=== PATIENT | female | born 1975 | race American Indian/Alaskan Native ===

== ENCOUNTER 2018-06-23 12:28 | Emergency (ER) | payer OTHER ==
[2018-06-23 12:44] VITALS: BP 150/55
[2018-06-23] MEDS ORDERED: DECADRON IM ONE (15:39)
--- NOTE | 2018-06-23 16:10 | Emergency Department Report ---
ED Extremity Problem HPI - General Chief complaint: Extremity Injury, Lower Stated complaint: (L)NUMBNESS IN FOOT/LEG Time Seen by Provider: 06/23/18 15:10 Source: patient Mode of arrival: Ambulatory Limitations: No Limitations - History of Present Illness Initial comments: 42-year-old female with a past medical history hypertension presents complaining of left leg pain and numbness 2 days. Symptoms started after a sitting with her legs crossed for prolonged amount of time. Patient complains of numbness in pain at the anterior part of the leg extending to the top of her foot. Pain is constant, 8/10 in intensity, exacerbated by prolonged sitting and standing. Patient did have some swelling to her left foot which has since resolved. She denies recent trauma, fall, back pain, urinary incontinence, buttock pain, fever, calf tenderness, recent travel, control pill use, or history of PE/DVT. Patient is presents concerned of diabetes and blood clots since members or her family had been diagnosed with both. She does not have a primary care doctor. Severity scale (0 -10): 8 - Related Data Previous Rx's Medication Instructions Recorded Last Taken Type HYDROcodone/APAP 5-325 [[place] 1 each PO Q6HR PRN #20 tablet 06/23/18 Unknown Rx 5/325] methylPREDNISolone [Medrol] 4 mg PO QAM #1 tab.ds.pk 06/23/18 Unknown Rx Allergies Allergy/AdvReac Type Severity Reaction Status Date / Time NSAIDS (Non-Steroidal Allergy Anaphylaxis Verified 06/23/18 12:30 Anti-Inflamma ED Review of Systems ROS: Stated complaint: (L)NUMBNESS IN FOOT/LEG Other details as noted in HPI Comment: All other systems reviewed and negative ED Past Medical Hx - Past Medical History Hx Hypertension: Yes - Surgical History Past Surgical History?: No - Social History Smoking Status: Current Some Day Smoker Substance Use Type: Alcohol - Medications Home Medications: Home Medications Medication Instructions Recorded Confirmed Last Taken Type HYDROcodone/APAP 5-325 [[place] 1 each PO Q6HR PRN #20 tablet 06/23/18 Unknown Rx 5/325] methylPREDNISolone [Medrol] 4 mg PO QAM #1 tab.ds.pk 06/23/18 Unknown Rx ED Physical Exam - General Limitations: No Limitations - Other Other exam information: General: No limitations, patient is alert in no acute distress Head exam: Atraumatic, normocephalic Eyes exam: Normal appearance ENT: Moist mucous membrane, normal oropharynx Neck exam: Normal inspection, full range of motion, no meningismus nontender Respiratory exam: Clear to auscultation bilateral, no wheezes, rales, crackles Cardiovascular: Normal rate and rhythm, normal heart sounds Abdomen: Soft, nondistended, and nontender, with normal bowel sounds, no rebound, or guarding Extremity: Full range of motion normal inspection no deformity. No calf tenderness, leg asymmetry, or leg edema. 2+ DP pulses equal bilaterally Back: Normal Inspection, full range of motion, no tenderness Neurologic: Alert, oriented x3, cranial nerves intact, left leg: decrease in sensation to light touch at the anterior mid lower leg and top of foot along the L5 distribution. Sensation to rest the leg and entire right leg are intact. 5/5 ankle plantar and dorsiflexion strength as well as knee strength equal bilaterally. Psychiatric: normal affect, normal mood Skin: Warm, dry, intact ED Course Vital Signs 06/23/18 12:43 Temperature 98.2 F Pulse Rate 84 Respiratory 18 Rate Blood Pressure 150/55 O2 Sat by Pulse 100 Oximetry ED Medical Decision Making - Radiology Data Radiology results: report reviewed Doppler negative for DVT of the left leg PROCEDURE: VL VENOUS DUPLEX LE LT TECHNIQUE: Ultrasound of the left leg venous system HISTORY: left leg pain for 3 days COMPARISONS: None FINDINGS: Normal compressibility, vascular patency, and augmentation are present diffusely throughout the visualized portion of the deep veins. No abnormal intraluminal echoes are visualized to suggest deep vein thrombus. IMPRESSION: No sonographic evidence of left leg DVT - Medical Decision Making Patient presenting with signs and symptoms along the L5 distribution. Patient received a Doppler to rule out DVT per her request and it was negative for DVT. Patient glucose was also normal with no history of diabetes. Patient is allergic to NSAIDs and therefore will be treated with steroids with first dose of Decadron provided in the ED. She will also received additional medication for pain relief. Outpatient follow-up encourage with PMD and orthopedic doctor. - Differential Diagnosis sciatica, herniated disc, lumbar radiculopathy Critical Care Time: No Critical care attestation.: If time is entered above; I have spent that time in minutes in the direct care of this critically ill patient, excluding procedure time. ED Disposition Clinical Impression: Lumbar radiculopathy, acute Disposition: [id number] TO HOME OR SELFCARE Is pt being admited?: No Does the pt Need Aspirin: No Condition: Stable Instructions: Lumbar Radiculopathy (ED) Additional Instructions: Take the medication as prescribed. Follow up with your doctor or the clinic/doctor provided. Return if symptoms worsen as indicated by your discharge instructions. Prescriptions: HYDROcodone/APAP 5-325 [[place] 5/325] 1 each PO Q6HR PRN #20 tablet PRN Reason: Pain methylPREDNISolone [Medrol] 4 mg PO QAM #1 tab.ds.pk Referrals: ABRAHAM ORTEGA MD [Staff Physician] - 3-5 Days (orthopedic) DIMAS KENT MD [Staff Physician] - 3-5 Days (primary care doctor) MALACHI ROSENBERG MD [Primary Care Provider] - 3-5 Days (primary care clinic ) Time of Disposition: 16:37
--- NOTE | 2018-06-23 16:32 | Vascular Lab Report ---
PROCEDURE: VL VENOUS DUPLEX LE LT TECHNIQUE: Ultrasound of the left leg venous system HISTORY: left leg pain for 3 days COMPARISONS: None FINDINGS: Normal compressibility, vascular patency, and augmentation are present diffusely throughout the visua lized portion of the deep veins. No abnormal intraluminal echoes are visualized to suggest deep vein thrombus. IMPRESSION: No sonographic evidence of left leg DVT This document is electronically signed by Arsen Ariza MD., June 23 2018 04:30:23 PM ET
== END 2018-06-23 16:43 | disposition home or self-care (01) ==
LOC: ED 12:28
DX: M54.16 Radiculopathy, lumbar region (principal); I10 Essential (primary) hypertension; F17.200 Nicotine dependence, unspecified, uncomplicated
CPT/HCPCS: 82962; 93971; 96372; 99284; J1100